=== PATIENT | male | born 1975 | race Caucasian/White ===

== ENCOUNTER 2016-09-06 13:54 | Emergency (ER) | payer OTHER ==
[2016-09-06 14:00] VITALS: BP 114/77; PULSE 73; TEMP 97.6; BMI 26.6
[2016-09-06] MEDS ORDERED: ALBUTEROL SO4 2.5/IPRATROPIUM 0.5 INH SOL 3 ML VIAL.NEB. NEB ONE ×2 (14:32→14:33)
--- NOTE | 2016-09-06 14:32 | PDOC ---
History of Present Illness - General Chief Complaint: Cold Symptoms Stated Complaint: sob,sore throat Time Seen by Provider: 09/06/16 14:18 History Source: Patient Exam Limitations: No Limitations - History of Present Illness Initial Comments: CHIEF COMPLAINT: 41 y/o afebrile male c/o body aches, sore throat and mild cough since yesterday. HISTORY OF PRESENT ILLNESS: The patient has been taking motrin for his symptoms with little relief. He states it hurts to swallow. He denies SAHNI, neck pain runny nose, n/v/d, CP, SOB, abd pain, back pain, hematuria, dysuria. Vital signs on arrival are within normal limits. REVIEW OF SYSTEMS: GENERAL/CONSTITUTIONAL: No fever/chills. No weakness. No weight change. +body aches. HEAD, EYES, EARS, NOSE AND THROAT: No change in vision. No ear pain or discharge. + sore throat. CARDIOVASCULAR: No chest pain or shortness of breath. RESPIRATORY: +wheezing today. No cough or hemoptysis. GASTROINTESTINAL: No abd pain, nausea, vomiting, diarrhea. GENITOURINARY: No dysuria, frequency, or change in urination. MUSCULOSKELETAL: No joint or muscle swelling or pain. No neck or back pain. SKIN: No rash or easy bruising. NEUROLOGIC: No headache, vertigo, loss of consciousness, or loss of sensation. PHYSICAL EXAM: GENERAL: The patient is awake, alert, and fully oriented, in no acute distress. He is well appearing. HEAD: Normal with no signs of trauma. ENT: Pupils equal, round and reactive to light, extraocular movements intact, sclera anicteric, conjunctiva clear. Neck supple. Posterior pharyngeal erythema without edema or exudate. Uvula midline. No soft/hard palate deformities. No tender anterior cervical lymphadenopathy. LUNGS: Very slight expiratory wheezing in the anterior [place]. Normal excursion. No respiratory distress or use of accessory muscles. CV: RRR, S1/S2, no MRG. Cap refill < 2 sec. ABDOMEN: Soft, non-distended, non-tender even to deep palpation, no hepatomegaly or splenomegaly, no masses. EXTREMITIES: Normal range of motion, no edema. NEUROLOGICAL: Normal speech, normal gait. CN II-XII grossly intact. PSYCH: Normal mood, normal affect. SKIN: Warm, dry, normal turgor, no rashes or lesions noted. Past History - Past Medical History Allergies/Adverse Reactions: Allergies Allergy/AdvReac Type Severity Reaction Status Date / Time Penicillins Allergy Verified 09/06/16 13:57 Home Medications: Ambulatory Orders Buprenorphine HCl/Naloxone HCl [Suboxone 8 mg-2 mg Sl Tablets] 1 each SL DAILY 09/06/16 Anemia: No Asthma: No Cancer: No Cardiac Disorders: No CVA: No COPD: No CHF: No Dementia: No Diabetes: No GI Disorders: No Disorders: No HTN: No Hypercholesterolemia: No Kidney Stones: No Liver Disease: No Suicide Attempt (Hx): No Seizures: No Thyroid Disease: No Other medical history: hx of drug abuse - Reproductive History Testicular Surgery: No - Psycho/Social/Smoking Cessation Hx Anxiety: No Suicidal Ideation: No Smoking History: Current every day smoker Have you smoked in the past 12 months: Yes Number of Cigarettes Smoked Daily: 40 Information on smoking cessation initiated: Yes 'Breaking Loose' booklet given: 09/06/16 Hx Alcohol Use: No Drug/Substance Use Hx: No Substance Use Type: Cocaine, Heroin, Opiates Hx Substance Use Treatment: Yes *Physical Exam - Vital Signs Last Vital Signs Temp Pulse Resp BP Pulse Ox 97.6 F 73 18 114/77 100 09/06/16 13:58 09/06/16 13:58 09/06/16 13:58 09/06/16 13:58 09/06/16 13:58 Heart Score/ECG Review - ECG Intrepretation Comment:: Twelve-lead EKG was performed and reviewed by Dr. Arellano. There is normal sinus rhythm with a normal rate. The axis is normal. The intervals are normal. There are no ST or T wave abnormalities. Impression: Normal twelve-lead EKG Medical Decision Making - Medical Decision Making A/P: 41 y/o afebrile male with body aches and sore throat since yesterday. Plan is as follows: 1. Influenza 2. Rapid strep 3. Duoneb Influenza A&B - negative Rapid strep - negative Explained diagnosis of viral URI to the patient. suggested continued Motrin use every 6 hours for fever/pain. Instructed him to get plenty of rest and drink a lot of fluids. Suggested he return to the ER with any worsening or concerning symptoms. The patient verbalizes understanding of all instructions, has no further questions and is awaiting discharge. *DC/Admit/Observation/Transfer Diagnosis at time of Disposition: Viral upper respiratory tract infection - Discharge Dispostion Disposition: HOME Condition at time of disposition: Stable - Patient Instructions Printed Discharge Instructions: DI for Viral Upper Respiratory Infection -- Adult Additional Instructions: Discharge Instructions: -Take Motrin every 6 hours with food for pain/fever -You can add tylenol if needed as well for fever/pain -Drink plenty of fluids -Get lots of rest -Follow up with your doctor on Thursday -Return to the ER with any worsening or concerning symptoms
--- NOTE | 2016-09-09 21:56 | EKG ---
Test Reason : Blood Pressure : / mmHG Vent. Rate : 062 BPM Atrial Rate : 062 BPM P-R Int : 148 ms QRS Dur : 074 ms QT Int : 400 ms P-R-T Axes : 056 016 036 degrees QTc Int : 406 ms NORMAL SINUS RHYTHM NORMAL ECG NO PREVIOUS ECGS AVAILABLE Confirmed by JARROD HOLLIS MD ([id number]) on 09/09/2016 9:56:17 PM Referred By: Confirmed By:JARROD HOLLIS MD
== END 2016-09-06 15:44 | disposition home or self-care (01) ==
LOC: JERFT 13:54
PROC: 3E0F7GC Introduction of Other Therapeutic Substance into Respiratory Tract, Via Natural or Artificial Opening (ICD-10-PCS; principal; 2016-09-06)
DX: J06.9 Acute upper respiratory infection, unspecified (principal); B97.89 Other viral agents as the cause of diseases classified elsewhere
CPT/HCPCS: 87070; 87430; 87804; 93005; 93010; 94640; 99281-25

== ENCOUNTER 2017-11-07 16:22 | Emergency (ER) | payer OTHER ==
[2017-11-07 16:47] VITALS: TEMP 98.5; BMI 29.3
--- NOTE | 2017-11-07 17:05 | PDOC ---
History of Present Illness - General History Source: Patient Exam Limitations: No Limitations - History of Present Illness Initial Comments: 11/07/17 18:28 The patient is a 42 year old male with a significant PMH of polysubstance abuse (sober 3 years) who presents to the emergency department with right foot swelling and chest pain today. The patient reports that he had an injury to his right leg and foot by which he went to the ED given pain medication and crutches. The patient reports that he was released home last night. He states that today he has experienced increased swelling and sharp pain in his right foot. He states that he feels like something is broken. The patient reports that he has been elevating his foot and applying ice and using his crutches as directed to do. He reports taking ibuprofen at home (800mg) with little relief. The patient also reports that he began feeling left sided chest pain about 1 hour prior to arrival to the ED. He reports that he was driving going up a hill when he began to experience his chest pain. He states that he was recently recovering from pneumonia that he was diagnosed with 1 month ago. the patient denies any other symptoms. He denies any shortness of breath, headache and dizziness. He denies any fever, chills, nausea, vomit, diarrhea , constipation or urinary symptoms. The patient denies any other complaints. <Hue Witt - Last Filed: 11/07/17 18:28> <Ivy Vega - Last Filed: 11/07/17 19:11> - General Chief Complaint: Chest Pain Stated Complaint: CHEST PAIN Time Seen by Provider: 11/07/17 17:04 Past History <Hue Witt - Last Filed: 11/07/17 18:28> - Past Medical History Anemia: No Asthma: No Cancer: No Cardiac Disorders: No CVA: No COPD: No CHF: No Dementia: No Diabetes: No GI Disorders: No Disorders: No HTN: No Hypercholesterolemia: No Kidney Stones: No Liver Disease: No Seizures: No Thyroid Disease: No Other medical history: RIGHT ANKLE/FOOT INJURY 11/05/17 - Reproductive History Testicular Surgery: No - Suicide/Smoking/Psychosocial Hx Smoking History: Current every day smoker Have you smoked in the past 12 months: Yes Number of Cigarettes Smoked Daily: 40 Information on smoking cessation initiated: Yes 'Breaking Loose' booklet given: 09/06/16 Hx Alcohol Use: No Drug/Substance Use Hx: Yes (DENIES FOR OVER 3 YEARS) Substance Use Type: Cocaine, Heroin, Opiates Hx Substance Use Treatment: Yes <Ivy Vega - Last Filed: 11/07/17 19:11> - Past Medical History Allergies/Adverse Reactions: Allergies Allergy/AdvReac Type Severity Reaction Status Date / Time Penicillins Allergy Verified 09/06/16 13:57 Home Medications: Ambulatory Orders Buprenorphine HCl/Naloxone HCl [Suboxone 8 mg-2 mg Sl Tablets] 1 each SL TID 06/24 Albuterol Sulfate Inhaler - [Ventolin Hfa Inhaler -] 1 - 2 inh PO QID PRN #1 inhaler 09/01/17 Ibuprofen 800 mg PO TID PRN 11/07/17 Trazodone HCl 100 mg PO HS 11/07/17 Review of Systems - Review of Systems Able to Perform ROS?: Yes Comments:: 11/07/17 18:28 GENERAL/CONSTITUTIONAL: No fever or chills. No weakness. HEAD, EYES, EARS, NOSE AND THROAT: No change in vision. No ear pain or discharge. No sore throat. CARDIOVASCULAR:(+)chest pain. No shortness of breath. RESPIRATORY: No cough, wheezing, or hemoptysis. GASTROINTESTINAL: No nausea, vomiting, diarrhea or constipation. GENITOURINARY: No dysuria, frequency, or change in urination. MUSCULOSKELETAL: (+) increased right foot swelling and pain. No neck or back pain. SKIN: No rash NEUROLOGIC: No headache, vertigo, loss of consciousness, or change in strength/ sensation. ENDOCRINE: No increased thirst. No abnormal weight change. HEMATOLOGIC/LYMPHATIC: No anemia, easy bleeding, or history of blood clots. ALLERGIC/IMMUNOLOGIC: No hives or skin allergy. <Hue Witt - Last Filed: 11/07/17 18:28> *Physical Exam - Vital Signs Last Vital Signs Temp Pulse Resp BP Pulse Ox 98.5 F 56 L 18 121/83 98 11/07/17 16:23 11/07/17 16:23 11/07/17 16:23 11/07/17 16:23 11/07/17 16:23 - Physical Exam Comments: 11/07/17 18:28 GENERAL: Awake, alert, and fully oriented, in no acute distress HEAD: No signs of trauma EYES: PERRLA, EOMI, sclera anicteric, conjunctiva clear ENT: Auricles normal inspection, hearing grossly normal, nares patent, oropharynx clear without exudates. Moist mucosa NECK: Normal ROM, supple, no lymphadenopathy, JVD, or masses LUNGS: Breath sounds equal, clear to auscultation bilaterally. No wheezes, and no crackles HEART: (+)point tenderness in left lateral chest and axilla. Regular rate and rhythm, normal S1 and S2, no murmurs, rubs or gallops ABDOMEN: Soft, nontender, normoactive bowel sounds. No guarding, no rebound. No masses EXTREMITIES: (+)right foot and ankle diffusely swollen with ecchymosis. Tenderness to palpation of foot , 2+ dorsalis , limited ROM with flexion and extension of right foot, Abrasion above right knee with no tenderness or deformity.Sensory intact. No clubbing or cyanosis. No cords, erythema. NEUROLOGICAL: Cranial nerves II through XII grossly intact. Normal speech, normal gait SKIN: Warm, Dry, normal turgor, no rashes or lesions noted. <Hue Witt - Last Filed: 11/07/17 18:28> - Vital Signs Last Vital Signs Temp Pulse Resp BP Pulse Ox 98.5 F 56 L 18 121/83 98 11/07/17 16:23 11/07/17 16:23 11/07/17 16:23 11/07/17 16:23 11/07/17 16:23 <Ivy Vega - Last Filed: 11/07/17 19:11> Medical Decision Making - Medical Decision Making 11/07/17 18:50 Pt presents to the ED complaining of pain to the foot after crush injury yesterday. Negative films at [facility] yesterday. On exam, foot is diffusely swollen and ecchymotic, but skin is soft, pulses are intact and patient is neurologically intact. No signs of compartment syndrome. Will discharge home with rx for <Ivy Vega - Last Filed: 11/07/17 19:11> *DC/Admit/Observation/Transfer - Attestations Scribe Attestion: 11/07/17 18:28 Documentation prepared by Collisia Eduar, acting as lpn medical assistant for Ivy Vega MD. <Hue Witt - Last Filed: 11/07/17 18:28> - Discharge Dispostion Decision to Admit order: No <Ivy Vega - Last Filed: 11/07/17 19:11> Diagnosis at time of Disposition: Contusion, foot Qualifiers: Encounter type: initial encounter Laterality: right Qualified Code(s): S90.31XA - Contusion of right foot, initial encounter - Discharge Dispostion Disposition: HOME Condition at time of disposition: Good - Patient Instructions Printed Discharge Instructions: DI for Crush Injury Additional Instructions: return immediately to the ED for severe pain, cold numb blue swollen foot, severe chest pain or shortness of breath, other new or worsening symptoms. - Post Discharge Activity Forms/Work/School Notes: Back to Work
[2017-11-07 18:45] VITALS: BP 136/82; PULSE 60
--- NOTE | 2017-11-11 12:47 | EKG ---
Test Reason : Blood Pressure : / mmHG Vent. Rate : 056 BPM Atrial Rate : 056 BPM P-R Int : 128 ms QRS Dur : 070 ms QT Int : 402 ms P-R-T Axes : 051 015 020 degrees QTc Int : 387 ms SINUS BRADYCARDIA OTHERWISE NORMAL ECG WHEN COMPARED WITH ECG OF 01-SEP-2017 11:04, NO SIGNIFICANT CHANGE WAS FOUND Confirmed by RAUL DEJESUS MD ([id number]) on 11/11/2017 12:47:25 PM Referred By: DANIEL Confirmed By:RAUL DEJESUS MD
== END 2017-11-07 19:15 | disposition home or self-care (01) ==
LOC: FER 16:22
DX: S90.31XA Contusion of right foot, initial encounter (principal); W23.0XXA Caught, crushed, jammed, or pinched between moving objects, initial encounter; Y93.89 Activity, other specified; Y92.9 Unspecified place or not applicable
CPT/HCPCS: 73610-TC-RT-FY; 73630-TC-RT-FY; 93005; 99283-25

== ENCOUNTER 2018-06-09 16:01 | Emergency (ER) | payer OTHER ==
--- NOTE | 2018-06-09 16:08 | PDOC ---
History of Present Illness - General Chief Complaint: Cold Symptoms Stated Complaint: SORE THROAT, HEAVY LUNGS Time Seen by Provider: 06/09/18 16:08 History Source: Patient, Spouse ( present at bedside) Exam Limitations: No Limitations - History of Present Illness Initial Comments: HPI: 43 y/o male presenting to ER complaining of sore throat for three weeks. States symptoms began with a sore throat that is present only in morning after waking and when going to sleep. Endorses radiator heat in bedroom. Further endorses reproducible, pleuritic chest pain for the past week and a half. Pain is localized to bilateral lower anterior chest wall. Made worse with inspiration and lateral twisting of torso. No pain with breath holding. No radiation to arms, back, or neck. Denies coughing. Able to lay flat at night to sleep. Denies lower extremity swelling. States he is waking up during the night for the past few nights. Difficult to determine if it is because of shortness of breath or disruption to normal sleep schedule because of the holiday. Is concerned because symptoms are similar to previous episode of pneumonia. reports hearing pt wheeze, but pt denies. Social Hx: - EtOH: Denies - Tobacco: 1.5 PPD/>30 years - Street Drugs: H/o of smoking crack cocaine, approx. 10 years, sober 4 years, managed with Suboxone Medical Hx: - Polysubstance abuse Surgical Hx: - Pt denies past surgical history. Past History - Past Medical History Allergies/Adverse Reactions: Allergies Allergy/AdvReac Type Severity Reaction Status Date / Time Penicillins Allergy Verified 06/09/18 16:03 Home Medications: Ambulatory Orders Buprenorphine HCl/Naloxone HCl [Suboxone 8 mg-2 mg Sl Tablets] 1 each SL TID 06/24 traZODone HCL [Trazodone HCl] 100 mg PO HS 11/07/17 Albuterol Sulfate Inhaler - [Ventolin HFA Inhaler -] 1 puff IH PRN PRN #1 inhaler 06/09/18 Fluticasone Prop 0.05% Nasal [Flonase -] 1 - 2 spray NS BID #1 spray.pump Anemia: No Asthma: No Cancer: No Cardiac Disorders: No CVA: No COPD: No CHF: No Dementia: No Diabetes: No GI Disorders: No Disorders: No HTN: No Hypercholesterolemia: No Kidney Stones: No Liver Disease: No Seizures: No Thyroid Disease: No - Reproductive History Testicular Surgery: No - Suicide/Smoking/Psychosocial Hx Smoking History: Current every day smoker Have you smoked in the past 12 months: Yes Number of Cigarettes Smoked Daily: 40 'Breaking Loose' booklet given: 09/06/16 Hx Alcohol Use: No Drug/Substance Use Hx: Yes (DENIES FOR OVER 3 YEARS) Substance Use Type: Cocaine, Heroin, Opiates Hx Substance Use Treatment: Yes Review of Systems - Review of Systems Able to Perform ROS?: Yes Comments:: In addition to that documented in the HPI above, the additional ROS was obtained : Constitutional: Denies fevers or chills Eyes: Denies vision changes ENMT: Per HPI CV: Per HPI Resp: Per HPI GI: Endorses single episode of vomiting after piece of food was stuck in throat at lunch today. Denies diarrhea : Denies painful urination MSK: Denies recent trauma Skin: Denies new rashes Neuro: Denies new numbness or tingling or weakness Endocrine: Denies polyuria Heme: Denies bleeding or bruising *Physical Exam - Physical Exam Comments: Constitutional: Well-developed, well-nourished, nontoxic male in no acute distress or obvious discomfort. Found semi-fowlers on hospital bed. Alert and oriented x4. Answered all questions appropriately and completely. Speech was non -labored, non-pressured. No coughing during interview. Head: Normocephalic. No obvious external signs of trauma. Eyes: Sclerae white. EARS: Hearing grossly intact. NOSE: No nasal discharge. THROAT: Oral cavity and pharynx normal. No inflammation, swelling, exudate, or lesions. Teeth and gingiva in good general condition. Neck: Supple, trachea is midline. Cardiovascular/Chest: Regular rate and regular rhythm. No murmur, rubs, clicks , or gallops. Peripheral pulses: Radial pulses full. No skin lesions. No tenderness to palpation. No pretibial edema. Respiratory: Breathing unlabored. Equal chest rise and fall. Clear to auscultation bilaterally. No stridor, no wheezing, no rhonchi. No tachypnea or increased WOB noted while observing pt ambulate throughout department. Neuro: Alert and oriented. Moving all four extremities spontaneously. Skin: Warm, dry, and intact. Psych: Affect: appropriate. Mood: normal. Medical Decision Making - Medical Decision Making *Reviewed vital signs, nursing notes, and prior visit documentation (if available). 43 y/o male presenting with sore throat and reproducible, pleuritic chest pain x3 weeks. No systemic symptoms. Current heavy tobacco and marijuana smoker. H/o smoking crack cocaine. No cardiac history. Afebrile. Vitals unremarkable for hypotension or tachycardia. Physical exam as described above. Low suspicion for pneumonia but will obtain CXR to further evaluate. Low suspicion for asthma without history and pts denial. No wheezing on auscultation. Suspect sore throat is related to dry heat in bedroom and current tobacco and marijuana smoking habits. Counseled on smoking cessation. CXR unremarkable for acute cardiopulmonary process. Continue to have low suspicion for pneumonia or asthma. Will prescribe Fluticasone for sore throat and Albuterol [facility] for reported wheeze. ED Attending discussed imaging results with pt. Answered all questions. Provided return precautions. Pt expressed verbal understanding and agreement with plan to discharge home with outpatient follow up. *DC/Admit/Observation/Transfer Diagnosis at time of Disposition: Atypical chest pain, Sore throat, Cigarette smoker - Discharge Dispostion Disposition: HOME Condition at time of disposition: Good Decision to Admit order: No - Prescriptions Prescriptions: Albuterol Sulfate Inhaler - [Ventolin HFA Inhaler -] 1 puff IH PRN PRN #1 inhaler PRN Reason: Wheezing Fluticasone Prop 0.05% Nasal [Flonase -] 1 - 2 spray NS BID #1 spray.pump - Referrals Referrals: Jeromy Chavez MD [Staff Physician] - - Patient Instructions Printed Discharge Instructions: How to Avoid a Cold or Flu Additional Instructions: You were seen today for a sore throat and chest pain with breathing. Your xray was normal and did not show signs of pneumonia. Your sore throat is likely caused by the dry heat in your house combined with smoking tobacco and marijuana. The chest pain may also be related. I have sent two prescriptions to your pharmacy. Take these as directed on the package insert. Do not take more than the recommended dose. Follow up with your primary care doctor within the next 3-4 days. You will need to call to make an appointment. I have referred you to a Ear, Nose, and Throat doctor, Dr. Chavez. You should follow up in the next few weeks. You will need to call to make an appointment. The number is included in this packet. Go to the nearest emergency department if your condition worsens or you feel like you need additional emergency evaluation. Print Language: [place] - Post Discharge Activity
[2018-06-09 16:25] VITALS: BP 122/77; PULSE 69; TEMP 98.3; BMI 29.4
[2018-06-09] MEDS ORDERED: IBUPROFEN 600 MG TABLET (FP) PO ONE ×2 (16:40→17:09)
== END 2018-06-09 17:29 | disposition home or self-care (01) ==
LOC: FER 16:01
DX: R07.89 Other chest pain (principal); J02.9 Acute pharyngitis, unspecified; F17.210 Nicotine dependence, cigarettes, uncomplicated
CPT/HCPCS: 71046-TC-FY; 99282-25

== ENCOUNTER 2019-02-19 14:17 | Emergency (ER) | payer OTHER ==
[2019-02-19 14:28] VITALS: BP 130/88; PULSE 68; TEMP 98.1; BMI 29.2
--- NOTE | 2019-02-19 14:30 | PDOC ---
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 Hand saw (non- powered) hit his left hand from above causing laceration of 4th and 5th digits. Coworker helped wash and apply bacitracin. Pt taped the wound himself. Reports normal hand movement and sensation since the injury. Worse swelling this morning - pt concerned for infection. ROS otherwise negative. Tetanus booster 1 year ago. ALL: PCN Meds: per chart PMH: denies PSH: denies Past History - Travel Traveled outside of the country in the last 30 days: No Close contact w/someone who was outside of country & ill: No - Past Medical History Allergies/Adverse Reactions: Allergies Allergy/AdvReac Type Severity Reaction Status Date / Time Penicillins Allergy Verified 06/09/18 16:03 Home Medications: Ambulatory Orders Buprenorphine HCl/Naloxone HCl [Suboxone 8 mg-2 mg Sl Tablets] 1 each SL TID 06/24 traZODone HCL [Trazodone HCl] 100 mg PO HS 11/07/17 Doxycycline Monohydrate [Mondoxyne Nl] 100 mg PO BID 5 Days #10 capsule Anemia: No Asthma: No Cancer: No Cardiac Disorders: No CVA: No COPD: No CHF: No Dementia: No Diabetes: No GI Disorders: No Disorders: No HTN: No Hypercholesterolemia: No Kidney Stones: No Liver Disease: No Seizures: No Thyroid Disease: No - Reproductive History Testicular Surgery: No - Suicide/Smoking/Psychosocial Hx Smoking History: Current every day smoker Have you smoked in the past 12 months: Yes Number of Cigarettes Smoked Daily: 40 'Breaking Loose' booklet given: 09/06/16 Hx Alcohol Use: No Drug/Substance Use Hx: Yes (DENIES FOR OVER 3 YEARS) Substance Use Type: Cocaine, Heroin, Opiates Hx Substance Use Treatment: Yes Review of Systems - Review of Systems Able to Perform ROS?: Yes Is the patient limited Martiniquais proficient: Yes Constitutional: No: Chills, Fever, Weakness HEENTM: No: Nose Congestion, Throat Pain, Difficulty Swallowing Respiratory: No: Cough, Shortness of Breath, Wheezing Cardiac (ROS): No: Chest Pain, Palpitations, Syncope ABD/GI: No: Constipated, Diarrhea, Nausea, Vomiting : No: Burning, Dysuria, Discharge, Pain Musculoskeletal: Yes: See HPI, Joint Pain, Joint Swelling, Muscle Pain. No: Back Pain, Muscle Weakness Integumentary: Yes: See HPI. No: Bruising, Erythema, Flushing Neurological: No: Headache, Numbness, Tingling Psychiatric: No: Anxiety, Depression Endocrine: No: Symptoms Reported Hematologic/Lymphatic: No: Symptoms Reported, Anemia, Blood Clots All Other Systems: Reviewed and Negative *Physical Exam - Physical Exam Comments: 02/19/19 15:10 Vitals reviewed, AFVSS Gen: WDWN man, appears stated age, no acute distress HEENT: NCAT, MMM, EOMI, trachea midline CV: RRR, nl s1s2, no murmurs appreciated Pulm: CTABL, normal WOB, no wheezes / rales / rhonchi Abd: Soft, nontender, nondistended Ext: WWP, no clubbing / cyanosis / edema, R hand, 4th and 5th digits with small lacerations (1-2mm), neuro-vascularly intact, normal ROM all digits PIP and DIP Neuro: alert and oriented, CN grossly intact, MAEE, normal strength and sensation Medical Decision Making - Medical Decision Making 02/19/19 14:28 43yo M with no PMH presenting 1 day s/p L hand 4th and 5th digit laceration while trimming trees. Normal motor and sensory function of his hand. Tetanus up to date. No infectious signs at this point, however, minimal concern for seeding of bone given mechanism. Tendon injury unlikely given physical exam. Will provide ABX, followup. No need for closure at this point. -X-Ray L hand -Doxy 100 BID for 5 days -OTC pain medication as needed -Ice / elevate -Hand Surgery Referral 02/19/19 15:28 -Xray without fractures or foreign bodies Dispo: Home *DC/Admit/Observation/Transfer Diagnosis at time of Disposition: Laceration - Discharge Dispostion Disposition: HOME Condition at time of disposition: Improved Decision to Admit order: No - Prescriptions Prescriptions: Doxycycline Monohydrate [Mondoxyne Nl] 100 mg PO BID 5 Days #10 capsule - Referrals Referrals: Jose Bonilla MD [Staff Physician] - - Patient Instructions Additional Instructions: You were seen and evaluated in the [facility] ED. Thank you for coming in. A prescription for antibiotics has been sent to your pharmacy. Please fill this prescription and take the antibiotics for the full course. You can continue to over the counter pain medication as per the label as needed for pain. Continue to ice and elevate your hand. You have been provided a referral for hand surgery for additional evaluation. Please call them to schedule an appointment in the next week. Return to the ED if you have any new or concerning symptoms including but not limited to: worsening pain non-responsive to medication, swelling and inability to move your fingers, spreading redness, or any sort of leakage from the wound. - Post Discharge Activity
--- NOTE | 2019-02-19 15:12 | PDOC ---
Attending Attestation - Resident Resident Name: VishalRoosevelt - ED Attending Attestation I have performed the following: I have examined & evaluated the patient, The case was reviewed & discussed with the resident, I agree w/resident's findings & plan, Exceptions are as noted - HPI HPI: 02/19/19 14:46 43y M no pmhx presenst with superficial laceration to the L 4th and 5th digits while cutting a branch yesterday. Pt states he was using a hand saw and cut a branch, the knife blade broke through the branch and struck his the 4th and 5th digit of his left hand. Therewas minor bleeding, he washed it out and put some bacitrcin on it. Pt denies any numbness/tingling weakness. notse some pain when he tries to make a fist. denies any fever/chills. tetanus UTD from last year - Physicial Exam PE: 02/19/19 15:12 General: well appearing, in no actue distress EXT: L elbow/wrist - normal ROM, L hand exam - 2mm laceratoin/puncture wound to the dorsal aspect of her left middle/ring finger at the PIP joint, able to flex/ extend at DIP/PIP/MCP against resisstnace, n/v intact throughout. no surrounding erythema, induration, fluctuance. ddx - suspect superficial laceration consider possible seeding w/ puncure wound to bone will obtain xray to r.o fx and fb will give abx for prophylaxis - Medical Decision Making 02/19/19 15:31 xray negatiev for fx will dc with supportive care an dhand surgery fu return precautions were discussed
== END 2019-02-19 16:00 | disposition home or self-care (01) ==
LOC: FER 14:17
DX: S61.215A Laceration without foreign body of left ring finger without damage to nail, initial encounter (principal); S61.217A Laceration without foreign body of left little finger without damage to nail, initial encounter; W27.0XXA Contact with workbench tool, initial encounter; Y93.H2 Activity, gardening and landscaping; Y92.9 Unspecified place or not applicable; F17.210 Nicotine dependence, cigarettes, uncomplicated; Z88.0 Allergy status to penicillin
CPT/HCPCS: 73130-TC-LT-FY; 99281-25

== ENCOUNTER 2019-05-05 09:36 | Emergency (ER) | payer OTHER ==
[2019-05-05 09:44] VITALS: BP 127/78; PULSE 69; TEMP 98.1; BMI 29.4
--- NOTE | 2019-05-05 09:45 | PDOC ---
History of Present Illness - General Chief Complaint: Chest Pain Stated Complaint: RIGHT CHEST PAIN Time Seen by Provider: 05/05/19 09:44 - History of Present Illness Initial Comments: 05/05/19 10:15 Chief complaint: Chest pain HPI: Patient experienced the sudden onset of his sharp stabbing right-sided chest pain last night while watching television. The pain is aggravated by deep breathing and movement of the arm and torso. The pain is momentary but recurrent. It has subsided somewhat this morning, but it there is still mild discomfort with breathing and movement. No recent URI symptoms or cough, but the patient is a heavy smoker. Review of systems: No fever/chills, URI symptoms, sore throat, cough, shortness of breath, abdominal pain, nausea, vomiting, diaphoresis, lightheadedness or dizziness, palpitations. 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 No alcohol. Smokes 2 packs a day cigarettes. Gainfully employed. 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 Physical exam: Alert and oriented x3, well-developed well-nourished, no acute distress, cheerful and cooperative. No tachypnea or dyspnea. Afebrile, vital signs normal HEENT normal Neck supple without bruit mass or nodes Chest clear to PNA, full breath sounds bilaterally, no wheezes rales or rhonchi Point tenderness over the 2nd-3rd ribs, right sternal border. This reproduces the patient's pain. No crepitus or deformity CV S1-S2 normal without murmur rub or gallop pulses full and symmetric no JVD or edema no bruits Abdomen benign Skin clear, no rash, adequate turgor and wet mucous membranes Extremities no CCE Neurological intact Impression: Smoker with signs of acute costochondritis. Possibly aggravated by physical labor Plan: Chest x-ray is clear. Symptomatic treatment and follow-up if no improvement. Fully ambulatory and in no severe pain or other distress at discharge. Past History - Past Medical History Allergies/Adverse Reactions: Allergies Allergy/AdvReac Type Severity Reaction Status Date / Time Penicillins Allergy Verified 05/05/19 09:38 Home Medications: Ambulatory Orders Buprenorphine HCl/Naloxone HCl [Suboxone 8 mg-2 mg Sl Tablets] 1 each SL TID 06/24 traZODone HCL [Trazodone HCl] 100 mg PO HS 11/07/17 Doxycycline Monohydrate [Mondoxyne Nl] 100 mg PO BID 5 Days #10 capsule Anemia: No Asthma: No Cancer: No Cardiac Disorders: No CVA: No COPD: No CHF: No Dementia: No Diabetes: No GI Disorders: No Disorders: No HTN: No Hypercholesterolemia: No Kidney Stones: No Liver Disease: No Seizures: No Thyroid Disease: No Other medical history: pt denies - Reproductive History Testicular Surgery: No - Immunization History Immunization Up to Date: Yes - Psycho Social/Smoking Cessation Hx Smoking History: Current every day smoker Have you smoked in the past 12 months: Yes Number of Cigarettes Smoked Daily: 40 Information on smoking cessation initiated: Yes 'Breaking Loose' booklet given: 09/06/16 Hx Alcohol Use: No Drug/Substance Use Hx: Yes (DENIES FOR OVER 3 YEARS) Substance Use Type: Cocaine, Heroin, Opiates Hx Substance Use Treatment: Yes Respiratory Specific PMHX - Complaint Specific PMHX Hx TB (Tuberculosis): No *Physical Exam - Vital Signs Last Vital Signs Temp Pulse Resp BP Pulse Ox 98.1 F 69 18 127/78 97 05/05/19 09:36 05/05/19 09:36 05/05/19 09:36 05/05/19 09:36 05/05/19 09:36 Medical Decision Making - Medical Decision Making 05/05/19 10:07 Chest x-ray clear Symptoms consistent with acute costochondritis/chest wall pain in a heavy smoker Pain is improved since yesterday, continue rest, symptomatic treatment, follow- up with further symptoms develop or no improvement. Patient comfortable, in no severe pain or other distress at discharge with to follow-up as directed Discharge - Discharge Information Problems reviewed: Yes Clinical Impression/Diagnosis: Acute costochondritis Condition: Stable Disposition: HOME - Admission No - Follow up/Referral - Patient Discharge Instructions Patient Printed Discharge Instructions: DI for Costochondritis Additional Instructions: Upper body rest. Gentle ice massage to affected area. Tylenol or Motrin as needed. Follow-up if no improvement primary physician or ER. - Post Discharge Activity Work/Back to School Note: Back to Work
== END 2019-05-05 10:15 | disposition home or self-care (01) ==
LOC: FER 09:36
DX: M94.0 Chondrocostal junction syndrome [Tietze] (principal); Z88.0 Allergy status to penicillin; F17.210 Nicotine dependence, cigarettes, uncomplicated
CPT/HCPCS: 71046-TC-FY; 99283-25

== ENCOUNTER 2019-12-09 13:55 | Emergency (ER) | payer OTHER ==
[2019-12-09 14:15] VITALS: BP 138/71; PULSE 57; TEMP 98.2; BMI 28.8
[2019-12-09] MEDS ORDERED: ASPIRIN 81 MG CHEWABLE TABLETS PO ONE (14:29)
[2019-12-09] MEDS ORDERED: ASPIRIN 81 MG CHEWABLE TABLETS ONE (14:54)
[2019-12-09 14:55] LABS: BASO % 1.7 % (0-2.0); EOS % 3.7 % (0-4.5); HEMATOCRIT 38.7 % (35.4-49); HEMOGLOBIN 13.3 GM/dl (11.7-16.9); LYMPH % 32.3 % (8-40); MCH 29.9 pg (25.7-33.7); MCHC 34.4 g/dl (32.0-35.9); MEAN PLT VOLUME 8.6 fl (7.5-11.1); NEUT % 56.3 % (42.8-82.8); PLATELET COUNT 267 K/MM3 (134-434); RBC 4.45 M/mm3 (4.00-5.60); RDW 13.3 % (11.9-15.9); WHITE BLOOD COUNT 9.7 K/mm3 (4.0-10.8)
[2019-12-09 15:03] LABS: ALBUMIN 3.9 g/dl (3.4-5.0); BILIRUBIN,TOTAL 0.5 mg/dl (0.2-1); CALCIUM 8.9 mg/dl (8.5-10); CREATININE 0.9 mg/dl (0.55-1.3); POTASSIUM 3.8 mmol/L (3.5-5.1); TOT PROT 6.4 g/dl (6.4-8.2)
--- NOTE | 2019-12-09 15:38 | PDOC ---
Documentation entered by Nini Elliott SCRIBE, acting as scribe for Marleny Quintanilla MD. Marleny Quintanilla MD: This documentation has been prepared by the terranceibeEarl Lincy, SCRIBE, under my direction and personally reviewed by me in its entirety. I confirm that the documentation accurately reflects all work, treatment, procedures, and medical decision making performed by me. History of Present Illness - General Chief Complaint: Chest Pain Stated Complaint: RESOLVED CHEST PAIN Time Seen by Provider: 12/09/19 13:59 History Source: Patient Exam Limitations: No Limitations - History of Present Illness Initial Comments: 12/09/19 14:33 The patient is a 44-year-old male with no reported past medical history who presents to the emergency department with chest pain. The patient reports he was driving when he had an acute onset of left-sided sharp, stabbing chest pain, associated with an immediate onset of a headache. The patient reports chest pains in the past, however, denies similar pain in the past. The patient reports walking into the ER he felt like he was going to pass out. Denies LOC. Denies fever, chills, cough, shortness of breath, palpitations. Denies recent travel. Denies history of DVTs. Denies leg pain or swelling. Denies prior cardiac workups or stress tests. Medication: Suboxone and trazodone Allergies: Penicillins Social history: Daily tobacco use. Family history: Denies family history of MIs. PCP: [facility] (used to see Dr. Ayon, follows every 3 months for blood works). Past History - Medical History Allergies/Adverse Reactions: Allergies Allergy/AdvReac Type Severity Reaction Status Date / Time Penicillins Allergy Verified 05/05/19 09:38 Home Medications: Ambulatory Orders Buprenorphine HCl/Naloxone HCl [Suboxone 8 mg-2 mg Sl Tablets] 1 each SL TID 09/06/16 traZODone HCL [Trazodone HCl] 100 mg PO HS 11/07/17 Anemia: No Asthma: No Cancer: No Cardiac Disorders: No CVA: No COPD: No CHF: No Dementia: No Diabetes: No GI Disorders: No Disorders: No HTN: No Hypercholesterolemia: No Kidney Stones: No Liver Disease: No Seizures: No Thyroid Disease: No - Reproductive History Testicular Surgery: No - Immunization History Immunization Up to Date: Yes - Psycho-Social/Smoking History Smoking History: Current every day smoker Have you smoked in the past 12 months: Yes Number of Cigarettes Smoked Daily: 40 'Breaking Loose' booklet given: 09/06/16 Cardiac Specific PMH - Complaint Specific PMHX Pacemaker: No Review of Systems - Review of Systems Able to Perform ROS?: Yes Comments:: 12/09/19 14:17 GENERAL/CONSTITUTIONAL: No fever or chills. No weakness. HEAD, EYES, EARS, NOSE AND THROAT: No change in vision. No ear pain or discharge. No sore throat. CARDIOVASCULAR: +chest pain. No Shortness of breath. RESPIRATORY: No cough, wheezing, or hemoptysis. GASTROINTESTINAL: No nausea, vomiting, diarrhea or constipation. GENITOURINARY: No dysuria, frequency, or change in urination. MUSCULOSKELETAL: No joint or muscle swelling or pain. No neck or back pain. SKIN: No rash NEUROLOGIC: +headache. No lightheadedness, vertigo, loss of consciousness, or change in strength/sensation. ENDOCRINE: No increased thirst. No abnormal weight change. HEMATOLOGIC/LYMPHATIC: No anemia, easy bleeding, or history of blood clots. ALLERGIC/IMMUNOLOGIC: No hives or skin allergy. *Physical Exam - Vital Signs Last Vital Signs Temp Pulse Resp BP Pulse Ox 98.2 F 57 L 20 138/71 99 12/09/19 13:55 12/09/19 13:55 12/09/19 13:55 12/09/19 13:55 12/09/19 13:55 - Physical Exam 12/09/19 14:19 GENERAL: Awake, alert, and fully oriented, in no acute distress HEAD: No signs of trauma EYES: PERRLA, EOMI, sclera anicteric, conjunctiva clear ENT: Auricles normal inspection, hearing grossly normal, nares patent. Moist mucosa NECK: Normal ROM, supple, no lymphadenopathy, JVD, or masses LUNGS: Breath sounds equal, clear to auscultation bilaterally. No wheezes, and no crackles CHEST WALL: No reproducible chest wall tenderness. HEART: Regular rate and rhythm, normal S1 and S2, no murmurs, rubs or gallops ABDOMEN: Soft, nontender, normoactive bowel sounds. No guarding, no rebound. No masses EXTREMITIES: Normal range of motion, no edema, no leg edema. No erythema or tenderness. DP/PT pulses 2+ and symmetric. Warm and well perfused. NEUROLOGICAL: Moves all extremities. Normal speech, normal gait SKIN: Warm, Dry, normal turgor, no rashes or lesions noted. ED Treatment Course - LABORATORY CBC & Chemistry Diagram: 12/09/19 14:39 12/09/19 14:39 - ADDITIONAL ORDERS Additional order review: Laboratory Results 12/09/19 12/09/19 14:39 14:39 Sodium 135 L Potassium 3.8 Chloride 102 Carbon Dioxide 24 Anion Gap 9 BUN 13.0 Creatinine 0.9 Est GFR (CKD-EPI)AfAm 118.30 Est GFR (CKD-EPI)NonAf 102.07 Random Glucose 88 Calcium 8.9 Total Bilirubin 0.5 AST 21 ALT 21 Alkaline Phosphatase 58 Troponin I < 0.03 Total Protein 6.4 Albumin 3.9 12/09/19 14:39 RBC 4.45 MCV 87.0 MCHC 34.4 RDW 13.3 MPV 8.6 Neutrophils % 56.3 Lymphocytes % 32.3 Monocytes % 6.0 Eosinophils % 3.7 Basophils % 1.7 - RADIOLOGY Radiology Studies Ordered: Category Date Time Status CHEST PA & LAT [RAD] Stat Radiology 12/09/19 14:28 Taken - Medications Given in the ED: ED Medications Discontinued Medications Generic Name Dose Route Start Last Admin Trade Name Sara PRN Reason Stop Dose Admin Aspirin 162 mg 12/09/19 14:29 12/09/19 14:54 Asa - PO 12/09/19 14:30 162 mg ONCE ONE Administration Medical Decision Making - Medical Decision Making 12/09/19 15:38 Patient's initial labs are unremarkable chest x-ray is negative. Discussed results with the patient and his offered 4-hour troponin explained the concern for angina patient would like to go home at this time was given referral for cardiology and internal medicine encouraged to stop smoking return for any recurrent symptoms Discharge - Discharge Information Problems reviewed: Yes Clinical Impression/Diagnosis: Chest pain Condition: Improved Disposition: HOME - Admission No - Follow up/Referral Referrals: ON STAFF,NOT [Primary Care Provider] - Natacha Nogueira MD [Staff Physician] - - Patient Discharge Instructions Patient Printed Discharge Instructions: DI for Chest Pain Additional Instructions: Your heart test today are negative for any acute heart attack your EKG is unremarkable. Your chest x-ray is negative for any acute infection or other pathology. You should follow-up with your primary care doctor if you do not have 1 you can follow-up with the [facility] near [facility] please see referral for Dr. Quezada he may call to schedule appointment with a physician at that office. In addition you should follow-up with the car diologist for an outpatient stress test please see referral information for Dr. Willingham call to schedule at the earliest convenience. Please return for any recurrent pain symptoms or other concerns - Post Discharge Activity
--- NOTE | 2019-12-11 14:23 | EKG ---
Test Reason : Blood Pressure : / mmHG Vent. Rate : 056 BPM Atrial Rate : 056 BPM P-R Int : 144 ms QRS Dur : 078 ms QT Int : 416 ms P-R-T Axes : 043 006 027 degrees QTc Int : 401 ms SINUS BRADYCARDIA OTHERWISE NORMAL ECG WHEN COMPARED WITH ECG OF 07-NOV-2017 16:25, NO SIGNIFICANT CHANGE WAS FOUND Confirmed by CHELO COOMBS MD ([id number]) on 12/11/2019 2:23:18 PM Referred By: Confirmed By:CHELO COOMBS MD
== END 2019-12-09 15:48 | disposition home or self-care (01) ==
LOC: FER 13:55 → SUPCPDRO 13:55 → FER 15:48
DX: R07.9 Chest pain, unspecified (principal)
CPT/HCPCS: 36415; 71046-TC-FY; 80053; 84484; 85025; 93005; 99285-25

== ENCOUNTER 2020-05-08 15:31 | Emergency (ER) | payer OTHER ==
[2020-05-08 15:46] VITALS: BP 152/87; PULSE 77; TEMP 98.5; BMI 29.1
[2020-05-08] MEDS ORDERED: PRESCRIPTION PAD 1 EACH EACH NR ONE (16:04)
== END 2020-05-08 16:50 | disposition home or self-care (01) ==
LOC: FER 15:31
DX: S99.912A Unspecified injury of left ankle, initial encounter (principal)
CPT/HCPCS: 73630-TC-RT-FY; 99284-25

== ENCOUNTER 2020-05-20 10:54 | Emergency (ER) | payer OTHER | END 2020-05-20 11:55 | disposition home or self-care (01) | LOC: JVIRT 10:54 | DX: Z03.818 Encounter for observation for suspected exposure to other biological agents ruled out (principal); J02.9 Acute pharyngitis, unspecified | CPT/HCPCS: C9803; G2012-GT; U0003 ==

== ENCOUNTER 2020-08-03 15:56 | Emergency (ER) | payer OTHER | END 2020-08-03 17:24 | disposition home or self-care (01) | LOC: JVIRT 15:56 | DX: Z11.52 Encounter for screening for COVID-19 (principal) | CPT/HCPCS: C9803; G2251-GT; U0003 ==

== ENCOUNTER 2020-12-07 12:00 | Emergency (ER) | payer OTHER ==
[2020-12-07 12:08] VITALS: BP 132/79; PULSE 75; TEMP 98.1; BMI 30.9
[2020-12-07 12:51] LABS: EOS % 1.6 % (0-4.5); HEMATOCRIT 41.9 % (35.4-49); HEMOGLOBIN 13.9 GM/dl (11.7-16.9); LYMPH % 28.8 % (8-40); MCH 29.5 pg (25.7-33.7); MCHC 33.2 g/dl (32.0-35.9); MEAN CELL VOLUME 88.8 fl (80-96); MEAN PLT VOLUME 8.7 fl (7.5-11.1); MONO % 5.1 % (3.8-10.2); NEUT % 62.5 % (42.8-82.8); PLATELET COUNT 253 10^3/uL (134-434); RBC 4.72 M/mm3 (4.00-5.60); RDW 12.9 % (11.9-15.9); WHITE BLOOD COUNT 10.3 K/mm3 (4.0-10.8)
[2020-12-07 13:02] LABS: ALBUMIN 4.1 g/dl (3.4-5.0); BILIRUBIN,TOTAL 0.4 mg/dl (0.2-1); CALCIUM 9.2 mg/dl (8.5-10); CREATININE 0.9 mg/dl (0.55-1.3); TOT PROT 7.2 g/dl (6.4-8.2)
== END 2020-12-07 14:54 | disposition home or self-care (01) ==
LOC: FER 12:00
DX: K40.91 Unilateral inguinal hernia, without obstruction or gangrene, recurrent (principal)
CPT/HCPCS: 36415; 74177-TC; 80053; 81003; 85025; 87086; 99285-25

== ENCOUNTER 2021-06-02 15:34 | Emergency (ER) | payer OTHER ==
[2021-06-02 15:59] VITALS: BP 149/88; PULSE 66; TEMP 98.4; BMI 30.2
[2021-06-04 15:08] LABS: SARS-CoV-2 NAA Detected (Not Detected)
== END 2021-06-02 16:33 | disposition home or self-care (01) ==
LOC: FER 15:34
DX: B34.9 Viral infection, unspecified (principal)
CPT/HCPCS: 99283-25; C9803; U0003; U0005

== ENCOUNTER 2021-08-07 11:13 | Emergency (ER) | payer OTHER ==
[2021-08-07 11:26] VITALS: BP 122/81; PULSE 73; TEMP 97.5; BMI 33.4
[2021-08-07] MEDS ORDERED: METHOCARBAMOL 500 MG TABLET PO ONE (11:54)
[2021-08-07] MEDS ORDERED: METHOCARBAMOL 500 MG TABLET ONE (12:02)
== END 2021-08-07 14:18 | disposition home or self-care (01) ==
LOC: FER 11:13
DX: M25.572 Pain in left ankle and joints of left foot (principal)
CPT/HCPCS: 73610-TC-LT-FY; 73630-TC-LT; 99283-25

== ENCOUNTER 2022-04-04 13:17 | Emergency (ER) | payer OTHER ==
[2022-04-04 13:25] VITALS: RESP 18; BMI 31.8
[2022-04-04] MEDS ORDERED: ACETAMINOPHEN 1000 MG/100 ML BAG IVPB ONE (13:27)
[2022-04-04] MEDS ORDERED: SODIUM CHLORIDE 1,000 ML IV STA (13:27)
[2022-04-04] MEDS ORDERED: ACETAMINOPHEN INJECTION 100 ML IVPB ONE (14:02)
[2022-04-04 14:25] LABS: HEMATOCRIT 40.6 % (35.4-49); HEMOGLOBIN 14.1 G/dL (11.7-16.9); MCHC 34.8 g/dl (32.0-35.9); MEAN PLT VOLUME 8.3 fl (7.5-11.1); RBC 4.56 10^6/uL (4.00-5.60); RDW 14.2 % (11.9-15.9); WHITE BLOOD COUNT 14.9 10^3/uL (4.0-10.8)
[2022-04-04 14:30] LABS: BILIRUBIN,TOTAL 0.6 mg/dl (0.2-1); CALCIUM 9.5 mg/dl (8.5-10); CREATININE 0.9 mg/dl (0.55-1.3)
[2022-04-04 14:34] LABS: PLATELET ESTIMATE ADEQUATE
[2022-04-04 17:25] VITALS: BP 128/76; PULSE 76; TEMP 98.8
== END 2022-04-04 17:28 | disposition home or self-care (01) ==
LOC: FER 13:17
PROC: 3E033NZ Introduction of Analgesics, Hypnotics, Sedatives into Peripheral Vein, Percutaneous Approach (ICD-10-PCS; principal; 2022-04-04)
PROC: 3E033GC Introduction of Other Therapeutic Substance into Peripheral Vein, Percutaneous Approach (ICD-10-PCS; 2022-04-04)
DX: K40.90 Unilateral inguinal hernia, without obstruction or gangrene, not specified as recurrent (principal)
CPT/HCPCS: 36415; 74177-TC; 80053; 81003; 83605; 83690; 85027; 87086; 99285-25; Q9967

== ENCOUNTER 2024-01-05 11:52 | Emergency (ER) | payer OTHER ==
[2024-01-05 12:01] VITALS: BP 136/84; PULSE 72; RESP 20; TEMP 97.7; BMI 32.3
[2024-01-05] MEDS: predniSONE 20 MG TABLET (UD) PO ONE (12:50)
[2024-01-05] MEDS: ALBUTEROL SO4 2.5/IPRATROPIUM 0.5 INH SOL 3 ML VIAL.NEB. NEB ONE (12:50)
[2024-01-05] MEDS ORDERED: predniSONE 20 MG TABLET (UD) ONE (13:00)
[2024-01-05] MEDS ORDERED: ALBUTEROL SO4 2.5/IPRATROPIUM 0.5 INH SOL 3 ML VIAL.NEB. NEB ONE (13:01)
[2024-01-05] MEDS ORDERED: AZITHROMYCIN 500 MG TABLET ONE (13:45)
[2024-01-05] MEDS: AZITHROMYCIN 250 MG TABLET PO ONE (13:47)
== END 2024-01-05 13:54 | disposition home or self-care (01) ==
LOC: FER 11:52
PROC: 3E0F7GC Introduction of Other Therapeutic Substance into Respiratory Tract, Via Natural or Artificial Opening (ICD-10-PCS; principal; 2024-01-05)
DX: J18.9 Pneumonia, unspecified organism (principal); Z20.822 Contact with and (suspected) exposure to COVID-19
CPT/HCPCS: 0241U-QW; 71046-TC-FY; 99284-25